=== PATIENT | female | born 1985 | race Caucasian/White ===

== ENCOUNTER 2016-07-25 18:10 | Emergency (ER) | payer MEDICAID ==
[~2016-07-25] VITALS: Ht 160 cm; Wt 100.0 kg
[2016-07-25 18:12] VITALS: Ht 160 cm; Wt 100.0 kg
[2016-07-25] MEDS ORDERED: FAMOTIDINE 20 MG TAB PO STA (19:43)
--- NOTE | 2016-07-25 19:51 | ERD ---
ER Documentation Chief Complaint Date/Time DATE: 07/25/16 TIME: 19:46 Chief Complaint pt bib self with c/o abd pain and nausea, hx fatty liver HPI Patient is a 31-year-old female who presents with gradual onset, intermittent, progressive right upper quadrant pain for the last 2 weeks. Pain is not improved or exacerbated by eating. Patient has had 2 episodes of vomiting during this time. Patient reports not having a bowel movement for the last week. Patient is taking [place] from prior prescription for unknown reason. Patient denies fever. Last menstrual period was 1 month ago. Patient does report having mild left upper quadrant pain, mild bilateral flank pain, and mild dysuria. No vaginal discharge. ROS All systems reviewed and are negative except as per history of present illness. Medications Home Meds Active Scripts Ibuprofen* (Motrin*) 400 Mg Tab, 400 MG PO Q8 Y for PAIN, #24 TAB Prov:DWIGHT BLAIR MD 07/25/16 Famotidine* (Pepcid*) 20 Mg Tablet, 20 MG PO BID for 4 Days, TAB Prov:DWIGHT BLAIR MD 07/25/16 Polyethylene Glycol* (Miralax*) 17 Gm Powd.pack, 17 GM PO DAILY, #7 Prov:DWIGHT BLAIR MD 07/25/16 Tramadol HCl (Tramadol HCl) 50 Mg Tablet, 50 MG PO Q6 Y for PAIN, #15 TAB Prov:DWIGHT BLAIR MD 07/25/16 Allergies Allergies: Coded Allergies: No Known Allergy (Unverified , 07/25/16) PMhx/Soc Past medical history: Hepatitis C, fibromyalgia, fatty liver Past surgical history: Cholecystectomy, appendectomy Social history: Smokes cigarettes, heavy alcohol use, denies illicit drugs. History of Surgery: Yes (appendectomy, cholecysectomy) Anesthesia Reaction: No Hx Neurological Disorder: No Hx Respiratory Disorders: No Hx Cardiac Disorders: No Hx Psychiatric Problems: No Hx Miscellaneous Medical Probl: Yes (fibromyalgia, hepatitis C, fatty liver) Hx Alcohol Use: Yes (socially) Hx Substance Use: Yes (marijuana socially) Hx Tobacco Use: Yes (1pack/day) Smoking Status: Current every day smoker FmHx Family History: No coronary disease, No diabetes Physical Exam Vitals Vital Signs Date Time Temp Pulse Resp B/P Pulse Ox O2 Delivery O2 Flow Rate FiO2 07/25/16 18:12 98.3 92 18 146/66 98 Physical Exam Const: Alert, crying on arrival in room, appears anxious Head: Atraumatic Eyes: Normal Conjunctiva, no pallor or icterus ENT: Normal External Ears, Nose and Mouth. Mucous membranes moist Neck: Full range of motion. No meningismus. Resp: Clear to auscultation bilaterally, no wheezes, rales, no rhonchi Cardio: Regular rate and rhythm, no murmurs Abd: Soft, mild right upper quadrant tenderness, mild left CVA tenderness, no rebound or guarding, non distended. Skin: No petechiae or rashes Back: No midline or paraspinal tenderness Ext: No cyanosis, or edema Neur: Awake and alert, cranial nerves II through XII intact bilaterally, strength and sensation intact in 4 extremities Psych: Appears anxious and depressed Result Diagram: 07/25/16199907/25/161999 Results 24 hrs Laboratory Tests Test 07/25/16 20:00 White Blood Count 8.710^3/ul Red Blood Count 4.4510^6/ul Hemoglobin 14.0g/dl Hematocrit 41.9% Mean Corpuscular Volume 94.2fl Mean Corpuscular Hemoglobin 31.5pg Mean Corpuscular Hemoglobin Concent 33.4g/dl Red Cell Distribution Width 12.4% Platelet Count 85293^3/UL Mean Platelet Volume 10.5fl Neutrophils % 61.1% Lymphocytes % 27.1% Monocytes % 7.0% Eosinophils % 4.1% Basophils % 0.5% Nucleated Red Blood Cells % 0.0/100WBC Neutrophils # 5.310^3/ul Lymphocytes # 2.410^3/ul Monocytes # 0.610^3/ul Eosinophils # 0.410^3/ul Basophils # 0.010^3/ul Nucleated Red Blood Cells # 0.010^3/ul Urine Color YELLOW Urine Clarity CLEAR Urine pH 5.5 Urine Specific Lena 1.020 Urine Ketones TRACE Urine Nitrite NEGATIVE Urine Bilirubin 1+ Urine Ictotest NEGATIVE Urine Urobilinogen 0.2 E.U./dL Urine Leukocyte Esterase NEGATIVE Urine Hemoglobin NEGATIVE Urine Glucose NEGATIVE% Urine Total Protein NEGATIVE Sodium Level 140mmol/L Potassium Level 3.9mmol/L Chloride Level 100mmol/L Carbon Dioxide Level 29mmol/L Anion Gap 15 Blood Urea Nitrogen 13mg/dl Creatinine 0.70mg/dl Glucose Level 112mg/dl Calcium Level 9.5mg/dl Total Bilirubin 0.9mg/dl Direct Bilirubin 0.00mg/dl Indirect Bilirubin 0.9mg/dl Aspartate Amino Transf (AST/SGOT) 437IU/L Alanine Aminotransferase (ALT/SGPT) 298IU/L Alkaline Phosphatase 152IU/L Total Protein 8.0g/dl Albumin 4.2g/dl Globulin 3.80g/dl Albumin/Globulin Ratio 1.10 Lipase 170U/L Serum HCG, Qualitative NEGATIVE Current Medications Medications (Trade) Dose Ordered Sig/Romain Route PRN Reason Start Time Stop Time Status Last Admin Dose Admin Famotidine (Pepcid) 20 mg ONCE STAT PO 07/25/16 19:43 07/25/16 19:44 DC 07/25/16 20:07 Dicyclomine HCl (Bentyl) 10 mg ONCE ONCE PO 07/25/16 20:00 07/25/16 20:01 DC 07/25/16 20:07 Tramadol HCl (Ultram) 50 mg ONCE ONCE PO 07/25/16 22:00 07/25/16 22:01 DC 07/25/16 22:07 Procedures/MDM MDM: Patient is a 31-year-old female with history of hepatitis C, hepatic steatosis, and alcohol abuse who presents to the ER with right upper quadrant pain for 2 weeks. She states that she has been seen for this before in [place] , but is new to the [facility]. She denies vomiting or fever. She reports that her last alcoholic drink was 2 days ago. Her exam is relatively benign, with only focal right upper quadrant tenderness, no rebound or guarding , and the patient is status post cholecystectomy. Her LFTs are elevated in a alcoholic injury pattern. There is no evidence of UTI. There is no evidence of pancreatitis. An ultrasound of the right upper quadrant was performed and shows a questionable mass in the gallbladder fossa. Given that this is unusual and the patient has had ongoing pain, I will obtain a CT scan to evaluate further. I do not suspect that the patient has a surgical condition, but she does not have access to follow-up care and will benefit from a diagnosis of her ongoing pain. The patient did make specific request for morphine, but I had extensive discussion with her regarding the fact that I do not believe opiates are appropriate for alcohol related pain. I will prescribe her a short course of tramadol, and a prescription for Pepcid. The patient also reports constipation, so I will prescribe her MiraLAX. Patient was signed out to Dr. Grissom at shift change, with plan to discharge the patient unless there is an acute finding on CT scan that warrants further evaluation or admission. Departure Diagnosis: Primary Impression: Alcoholic hepatitis Ascites presence: without ascites Qualified Code: K70.10 - Alcoholic hepatitis without ascites Additional Impression: Abdominal pain Abdominal location: right upper quadrant Qualified Code: R10.11 - Right upper quadrant abdominal pain Condition: Stable DWIGHT BLAIR MD Jul 25, 2016 19:51
[2016-07-25] MEDS ORDERED: DICYCLOMINE 10 MG CAP PO ONE (20:00)
[2016-07-25 20:14] LABS: ADD SCAN DIFF NO
[2016-07-25 20:15] LABS: BASOPHILS % 0.5 % (0.0-2.0); EOSINOPHILS # 0.4 10^3/ul (0.0-0.5); EOSINOPHILS % 4.1 % (0.0-7.0); HEMATOCRIT 41.9 % (37.0-47.0); LYMPHOCYTES # 2.4 10^3/ul (0.8-2.9); LYMPHOCYTES % 27.1 % (15.0-51.0); MEAN CORPUSCULAR HEMOGLOBIN 31.5 pg (29.0-33.0); MEAN CORPUSCULAR HGB CONC 33.4 g/dl (32.0-37.0); MEAN CORPUSCULAR VOLUME 94.2 fl (82.0-101.0); MEAN PLATELET VOLUME 10.5 fl (7.4-10.4); MONOCYTE # 0.6 10^3/ul (0.3-0.9); NEUTROPHIL # 5.3 10^3/ul (1.6-7.5); NEUTROPHILS % 61.1 % (39.0-77.0); PLATELET COUNT 243 10^3/UL (140-415); RED BLOOD COUNT 4.45 10^6/ul (4.20-5.40); RED CELL DISTRIBUTION WIDTH 12.4 % (11.5-14.5); WHITE BLOOD COUNT 8.7 10^3/ul (4.8-10.8)
[2016-07-25 20:23] LABS: ALBUMIN 4.2 g/dl (3.3-4.9)
[2016-07-25 20:24] LABS: POTASSIUM 3.9 mmol/L (3.5-5.1)
[2016-07-25 20:25] LABS: ADD UMIC NO; URINE BILIRUBIN (Dip) 1+ (NEGATIVE); URINE BLOOD (Dip) NEGATIVE (NEGATIVE); URINE COLOR YELLOW (YELLOW); URINE GLUCOSE (Dip) NEGATIVE (NEGATIVE); URINE KETONES (Dip) TRACE (NEGATIVE); URINE LEUKOCYTE ESTERASE (Dip) NEGATIVE (NEGATIVE); URINE NITRITE (Dip) NEGATIVE (NEGATIVE); URINE TOTAL PROTEIN (Dip) NEGATIVE (NEGATIVE); URINE UROBILINOGEN (Dip) 0.2 E.U./dL (0.1-1.0)
[2016-07-25 20:26] LABS: ALBUMIN/GLOBULIN RATIO 1.1; BILIRUBIN,INDIRECT 0.9 mg/dl (0-1.1); BILIRUBIN,TOTAL 0.9 mg/dl (0.2-1.3); CREATININE 0.7 mg/dl (0.44-1.00)
[2016-07-25 20:27] LABS: CALCIUM 9.5 mg/dl (8.4-10.2)
[2016-07-25 21:00] LABS: ICTOTEST NEGATIVE (NEGATIVE)
--- NOTE | 2016-07-25 21:52 | RADRPT ---
PROCEDURE: XR Abdomen. CLINICAL INDICATION: Abdominal pain. TECHNIQUE: AP abdomen x-ray. COMPARISON: No. FINDINGS: The heart and visible lung gamez are clear. There are clips in the right upper quadrant. There is scattered fecal material in the colon. No mechanical bowel obstruction is identified. The bony el ements are normal. IMPRESSION: 1. Status post cholecystectomy. 2. Otherwise unremarkable KUB. RPTAT:AAJJ Physician Gisela Date Time Electronically viewed and signed by Viet Bradley Physician on 07/25/2016 21:51 GEOVANNI/
[2016-07-25] MEDS ORDERED: traMADol 50 MG TAB PO ONE (22:00)
[2016-07-25] MEDS ORDERED: FAMO-18 PO (22:42)
[2016-07-25] MEDS ORDERED: IBUP400T22 PO (22:42)
[2016-07-25] MEDS ORDERED: POLY17PO6 PO (22:42)
[2016-07-25] MEDS ORDERED: TRAM50TA2 PO (22:42)
--- NOTE | 2016-07-25 23:08 | RADRPT ---
PROCEDURE: Right upper quadrant abdominal ultrasound. CLINICAL INDICATION: Abdominal pain, abnormal liver function tests TECHNIQUE: Ross scale and color doppler ultrasound images of the right upper quadrant. COMPARISON: None FINDINGS: Pancreas: Not adequately visualized due to overlying bowel gas. Liver: Morphology: Liver is enlarged measuring 21.3 cm. No evidence of contour nodularity. Echogenicity: Increased echogenicity of the liver parenchyma suggestive of hepatic steatosis. Focal lesions: None. Main portal vein: Patent with hepatopetal flow. Biliary System: Status post cholecystectomy with trace amount of fluid in the gallbladder fossa. Echogenic structure measuring 1.9 cm in the gallbladder fossa possibly representing a dropped gallst one. No intrahepatic biliary dilatation. Common bile duct measures 4.6 mm in maximal dimension. Kidneys: Right 9.7 cm in length. Right renal cortical thickness is preserved. Normal echogenicity. No hydronephrosis. No renal calculi. No focal lesions. No free fluid identified. IMPRESSION: Status post cholecystectomy. No evidence of intrahepatic or extrahepatic biliary dilatation. 1.9 cm echogenic structure in the gallbladder fossa possibly representing a retained gallstone. Tra ce amount of fluid in the gallbladder fossa. Enlarged echogenic liver compatible with hepatic steatosis. CT scan of the abdomen and pelvis may be useful for further evaluation. RPTAT: AADD .Edmond Mendoza MD, MD Date Time Electronically viewed and signed by .Edmodn Mendoza MD, on 07/25/2016 23:07 .B/
--- NOTE | 2016-07-26 00:46 | RADRPT ---
PROCEDURE: CT Abdomen and Pelvis with IV contrast. CLINICAL INDICATION: Pain. TECHNIQUE: CT scan of the abdomen and pelvis was performed on a multidetector slice CT scanner. 100 cc of Omnipaque 300 intravenous contrast material was utilized. Sagittal and coronal reformatted i mages were obtained from the axial source images. Images were reviewed on a high-resolution PACS wor kstation. Exam CTDlvol = 20 mGy and DLP = 1170 Gy-cm. One of the following 3 dose reduction techniqu es were used: Automated exposure control; adjustment of the mA and/or kV according to patient size; or use of iterative reconstruction technique. COMPARISON: KUB and right upper quadrant ultrasound 07/25/2016. FINDINGS: There is no obstruction or ileus. The appendix is not visualized. There are pericecal surgical cli ps consistent with prior appendectomy. There is no evidence for diverticulitis. There is no free flu id. The liver is enlarged and 18.5 cm length and diffusely hypodense/fatty. No intrahepatic lesions are identified. The gallbladder has been removed. There is no definite biliary ductal dilation. There ar e no calcifications within the gallbladder fossa or biliary tree. Pancreas is normal in appearance. The spleen is unremarkable.. There are no adrenal masses. The aorta is normal caliber.. Kidneys are normal in appearance without hydronephrosis, mass or calculus. There is no perinephric c ollection. Ureters are of normal caliber and without evidence for an obstructing calculus The urinar y bladder is contracted.. Uterus is normal appearance. Ovaries are grossly unremarkable. Limited evaluation lung bases is unremarkable. The bones are unremarkable. IMPRESSION: 1. Status post cholecystectomy. No evidence for retained calculus or biliary obstruction. 2. Enlarged fatty liver. 3. Appendix not visualized. Pericecal clips suggest prior appendectomy. 4. No obstructive uropathy. Contracts urinary bladder. 5. Otherwise negative. RPTAT: HMVK .Gianni Franco MD, Date Time Electronically viewed and signed by .Gianni Franco MD, MD on 07/26/2016 00:46 .K/
[2016-07-26 01:39] VITALS: BP 125/70; PULSE 67; RESP 16
[2016-07-26] MEDS ORDERED: ONDANSETRON 4 MG INJ IV STA (01:44)
[2016-07-26] MEDS ORDERED: morphine 4 MG/ML VIAL IV STA (01:44)
--- NOTE | 2016-07-26 01:47 | EN ---
Date/Time of Note Date/Time of Note DATE: 07/26/16 TIME: 01:45 ER Progress Note The patient was evaluated by Dr Draper, who was side the patient out to me pending on the abdominal and pelvic CT. According to him, if the abdominopelvic CT scan is normal, patient can be discharged as written by him. The abdominal pelvic CT is unremarkable, no acute finding. She was treated with morphine 4 mg IV for pain, Zofran 4 mg IV for nausea with good response. She will be discharged as written by COLLIN Santiago MD Jul 26, 2016 01:47
== END 2016-07-26 02:14 | disposition home or self-care (01) ==
LOC: FTE 18:10
DX: K70.10 Alcoholic hepatitis without ascites (principal); F17.210 Nicotine dependence, cigarettes, uncomplicated
CPT/HCPCS: 36415; 74000; 74177; 76705; 80053; 81003; 83690; 84703; 85025; 96374; 96375; J2270; J2405; Z7502; Z7610